=== PATIENT | male | born 2000 | race Caucasian/White ===

== ENCOUNTER 2021-05-25 20:37 | Emergency (ER) | payer OTHER, SELFPAY ==
[2021-05-25 20:37] VITALS: BP 140/93; PULSE 91; RESP 16; TEMP 36.2; O2SAT 99; BMI 17.4
--- NOTE | 2021-05-25 20:41 | ED.RN ---
CALL TO [employer] CRISTHIAN, UNKNOWN DRUG TESTING STATUS. SHE WILL SPEAK TO HER DIRECTOR AND CALL BACK.
--- NOTE | 2021-05-25 21:21 | ED.RN ---
Anabella GODINEZ FROM [facility] IN ED, SHE SPOKE TO CRISTHIAN AT [facility], STILL UNKNOWN IF PT REQUIRES DRUG TESTING. CRISTHIAN WILL CALL BACK WHEN DETERMINED.
[2021-05-25 22:29] VITALS: BP 126/78; PULSE 66; RESP 14; TEMP 37.1; O2SAT 98
--- NOTE | 2021-05-25 23:05 | EX.ED.GENINJ ---
HPI History of Present Illness Chief Complaint: Head Injury Informant: patient and spouse/S.O. Onset/Context/Timing Onset: Today and Hours Current Severity: Mild Maximum Severity: Mild Associated Symptoms Associated Symptoms: Negative for Parasthesias, Weakness, Loss of function, Inability to ambulate, Loss of consciousness and Amnesia Narrative Narrative: 20-year-old male no past medical history fell striking his head. No LOC. Slipped on the ice. Denies any vomiting. No severe headache. No neck pain. Patient is on no blood thinners. Prior similar symptoms: No Recent Illness/Hospitalization: No PFSH PFSH Medical History no medical history no medical history Allergy/AdvReac Type Severity Reaction Status Date / Time lactose AdvReac Nausea/Vom/ Verified 05/25/21 20:40 Diarrhea Surgical History no surgical history Social History Smoking Status: Current every day smoker tobacco type: e-cigarettes ROS ROS ED ROS Narrative Denies recent illness. Denies nausea or vomiting. Denies severe headache. Review of Systems ROS Unobtainable: Denies due to encephalopathy Constitutional Constitutional ED: Denies fever(s) Eyes Eyes: Denies change in vision ENT ENT ED: Denies ear pain Cardiovascular Cardiovascular: Denies chest pain Respiratory/Chest Respiratory/Chest: Denies dyspnea Gastrointestinal Gastrointestinal: Denies abdominal pain, diarrhea, nausea or vomiting Genitourinary Genitourinary ED: Denies dysuria Musculoskeletal Musculoskeletal: Denies myalgias Integumentary Denies rash Neurologic Neurologic: Denies headache(s) Psychiatric Psychiatric: Denies depression Endocrine Endocrinology: Denies polyuria Hematologic/Lymphatic Hematologic/Lymphatic: Denies easy bruising Allergic/Immunologic Allergic/Immunologic ED: Denies urticaria EXAM Physical Exam Narrative Exam Narrative: 20-year-old male no acute distress vital signs stable afebrile. H EENT exam dry reactive light. Extra motions are intact. Is a right upper front tooth strain has a chip in it but that is old that did not happen tonight. No trouble opening closing mouth. His abrasions to the distal nasal septal mucosa on both sides of his nose there is dried blood but no active bleeding. Nasal septum is nontender no deformity. TMs normal. Scalp nontender. No swelling. Neck nontender. Trachea midline. Lungs clear to auscultation. Chest wall nontender. Abdomen soft nontender. Heart regular rate and rhythm rate about 70 no murmur. Back nontender spine nontender. Moving all 4 extremities. Neurovascular intact. 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 Dorsi plantarflexion intact. No deformity. Neurologic exam normal NIH 0. GCS of 15. Awake alert. Answer questions following commands. Stood up and ambulated without any difficulty. Knows day, month and year. Person place. Const Vital Signs: 05/25/21 20:37 05/25/21 22:29 Temperature 97.2 F L 98.7 F Temperature Source Temporal Temporal Pulse Rate 91 66 Respiratory Rate 16 14 Respiratory Effort Normal Respiratory Depth Normal Respiratory Pattern Normal Blood Pressure 140/93 H 126/78 H Blood Pressure Mean 108 94 Pulse Ox 99 98 Oxygen Delivery Method Room Air Room Air Positive well nourished and well developed; Negative for obese, cachectic, contractures or unkempt General Appearance ED: well developed and NAD; Negative for unkempt, cachectic or contractures Nutritional Appearance: Negative for cachectic or obese HEENT trauma; Negative for atraumatic or tenderness Eyes PERRL and EOMs intact bilaterally Neck full ROM General: Negative for tenderness Chest Wall inspection of chest normal and palpation of chest normal Resp normal respiratory effort and clear to auscultation bilaterally Auscultation: Negative for rales, rhonchi or wheezes Cardio regular rhythm, S1 normal heart sound, S2 normal heart sound and no murmurs Rate: regular rate GI normal to inspection, nondistended, normoactive bowel sounds, non-tender, non-distended and no masses Auscultation: normoactive bowel sounds Palpation: soft; Negative for tender, guarding or rebound tenderness present Back/Spine normal to inspection and no thoracic nor lumbar tenderness General Back: Negative for CVA tenderness Thoracic Spine / Upper Back: Negative for thoracic spinal tenderness Lumbar Spine / Lower Back: Negative for straight leg raise negative bilaterally Extremity normal to inspection and full ROM General Extremety ED: Negative for deformity, edema or tenderness General Extremity: Negative for deformity or edema Neuro oriented x3, CN's II-XII intact bilaterally, moves all extremities, no focal motor deficits and no sensory deficits noted Draper Coma Scale: document GCS findings Spontaneous Obeys Commands Oriented 15 Sensorium / Orientation: alert, oriented to person, oriented to place, oriented to time and orientation impaired; Negative for lethargic or stuporous Motor Exam: strength 5/5 throughout Psych mental status grossly normal and thought process normal Appearance: Negative for unkempt Skin no rashes or lesions noted and no wounds MDM MDM MDM Narrative Medical decision making narrative: 20-year-old with head injury. Minor abrasions to his nasal septum but no bleeding. No nasal fracture. Exam is benign. His neurologic exam is normal. He had no LOC. He does not need imaging. Discharge Plan Triage Chief Complaint: Head Injury ED Provider: Mayur Taylor Dx/Rx/DC Orders Clinical Impression: Fall, Closed head injury Instructions: ED Concussion Primary Care Provider: Care Physician,No Primary Referrals: Corporate,Care [GROUP OF PHYSICIANS] - 1 Week if not improving Care Physician,No Primary [Primary Care Provider] - Activity Restrictions/Additional Instructions: If your nose starts to bleed all direct pressure for 20 minutes pinch her nose. Mata-Synephrine or Afrin to decrease the bleeding. Tylenol for pain. Return if intractable vomiting or not acting right. You may have a mild concussion. That should progressively improve over the next 1 to 2 weeks. Disposition Disposition: Home, Self Care
[2021-05-25 23:35] VITALS: BP 114/74; PULSE 60; RESP 17; O2SAT 96
== END 2021-05-25 23:36 | disposition home or self-care (01) ==
PROVIDERS: Emergency Provider Emergency Medicine; Visit Provider Emergency Medicine
DX: S09.90XA Unspecified injury of head, initial encounter (principal); F17.290 Nicotine dependence, other tobacco product, uncomplicated; W00.0XXA Fall on same level due to ice and snow, initial encounter
CPT/HCPCS: 99282